=== PATIENT | female | born 1975 | race Caucasian/White ===

== ENCOUNTER 2024-03-28 08:04 | Emergency (ER) | payer BC, SELFPAY ==
[2024-03-28 08:12] VITALS: BP 132/81; PULSE 99; RESP 18; TEMP 36.5; O2SAT 99
--- NOTE | 2024-03-28 08:19 | ED.URI ---
HPI - URI/Sore Throat General Chief Complaint: Upper Respiratory Infection Stated Complaint: Cough Time Seen by Provider: 03/28/24 08:21 Source: patient Mode of arrival: ambulatory Limitations: no limitations History of Present Illness HPI Narrative: 48-year-old female presented for complaint of a cough and nasal congestion/sinus pressure for over 10 days. Denies associated shortness of breath, wheezing, nausea vomiting, fevers or lethargy. Taking multiple lday-ntp-zsalgty medicines including mucinex and benadryl. Related Data Home Medications ?Medication ?Instructions ?Recorded ?Confirmed ?Last Taken ?Type desvenlafaxine succinate 100 mg 100 mg PO Q24H 03/28/24 Unknown History tablet,extended release 24 hr norethindrone 1 mg-ethinyl 1 tablet PO DAILY 03/28/24 Unknown History estradiol 20 mcg (24)-iron 75 mg (4) tablet (Blisovi 24 Fe) Allergies Allergy/AdvReac Type Severity Reaction Status Date / Time No Known Allergies Allergy Verified 03/28/24 08:24 Review of Systems Review of Systems: CONSTITUTIONAL: Denies body aches, fever, chills, or sweats. EYES: Denies visual changes, redness, or discharge. ENT: reports rhinorrhea, congestion, denies sore throat, or otalgia. CARDIOVASCULAR: Denies chest pain, palpitations, or edema. RESPIRATORY: Reports cough, denies sob, wheezing. MUSCULOSKELETAL: Denies back pain, joint pain, or myalgia. NEUROLOGIC: Denies headache, numbness, tingling, or weakness. All systems reviewed & are unremarkable except as noted in HPI and below PMFSH Comments At time of signature, I have reviewed and agree with nursing past medical, surgical, social and family history unless otherwise noted. Please see nursing chart for further information. There is no relevant family history pertinent to the presenting complaint Exam Narrative: GENERAL: Well-appearing, in no acute distress. EYES: EOMI. No redness or drainage. Conjunctivae normal. ENT: Mucous membranes pink and moist. rhinorrhea noted. TMs normal bilaterally. Throat normal. Uvula midline. NECK: Normal AROM. Supple. CHEST: No respiratory distress. lungs clear to all coley. HEART: Regular rate and rhythm. No murmur appreciated. SKIN: Warm, dry, no rash. Capillary refill normal. Normal skin turgor. NEURO: Alert and oriented x3. Gait steady. PSYCH: Normal affect. Course Course Emergency Course: Patient is aware of diagnosis, understands and agrees to treatment plan. Anticipatory guidance given. Patient agrees to follow-up as directed and is aware of reasons to seek care at the emergency department. Portions of this record may have been created with voice recognition software Level of Care: Express Care Visit Vital Signs Vital signs: Vital Signs Temperature 97.7 F 03/28/24 08:12 Pulse Rate 99 03/28/24 08:12 Respiratory Rate 18 03/28/24 08:12 Blood Pressure 132/81 03/28/24 08:12 Pulse Oximetry 99 03/28/24 08:12 Oxygen Delivery Room Air 03/28/24 08:12 Temperature 97.7 F 03/28/24 08:12 Pulse Rate 99 03/28/24 08:12 Respiratory Rate 18 03/28/24 08:12 Blood Pressure 132/81 03/28/24 08:12 Pulse Oximetry 99 03/28/24 08:12 Oxygen Delivery Room Air 03/28/24 08:12 MDM - URI/Sore Throat MDM Narrative Medical decision making narrative: Discussed physical exam findingsConsistent with bronchitis/sinusitis. Advised supportive measures and signs/symptoms to go to the ER. Pt is appropriate for outpt treatment and f/u. Differential Diagnosis Differential diagnosis: Likely upper respiratory infection, otitis media, sinusitis, viral infection, bronchitis, influenza and pharyngitis Discharge Plan Discharge Clinical Impression: Sinusitis, Bronchitis Patient Disposition: Home, Self-Care Condition: Stable Instructions: Antibiotic Form, Acute Bronchitis (ED), Rhinosinusitis (ED) Additional Instructions: Take medication as directed Recommendations: Flonase spray and Zyrtec (or Claritin/Sarah) Prescription Cough syrup may cause drowsiness; avoid driving or take it at night time. Tylenol 1000mg every 8 hours as needed for pain Symptomatic treatment includes: rest, fluids, and increase humidity of the air at home. Follow up with your primary care provider as needed in 1 week Go to the ER for worsening symptoms or concerns Patient Language: [place] Prescriptions: New benzonatate 200 mg capsule 200 mg PO TID PRN (Reason: cough) Qty: 20 0RF codeine-guaifenesin [Guaifenesin AC] 10-100 mg/5 mL liquid 10 ml PO Q8H PRN (Reason: cough) Qty: 120 0RF methylprednisolone [Medrol (Jayden)] 4 mg tablets,dose pack See Rx Instructions .ROUTE .COMPLEX Qty: 21 0RF Rx Instructions: orally per package directions amoxicillin-pot clavulanate 875-125 mg tablet 1 tablet PO Q12H 7 Days Qty: 14 0RF No Action Blisovi 24 Fe 1 mg-20 mcg (24)/75 mg (4) tablet 1 tablet PO DAILY desvenlafaxine succinate 100 mg tablet extended release 24 hr 100 mg PO Q24H Follow-up/Referrals: Stanislav,MD Jeanie [Primary Care Provider] -
--- OUTSIDE RECORDS SUMMARY | 2024-04-02 08:34 | XMS_ITS | Data Portability ---
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 for bad periods good spirits as always, son improving. 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 HAs BTL, no period with OCPs son 22, daughter 15. 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 no issues will continue OCPs girls 50 bday trip coming up Not available 11/28/2023 15:14:40 Plan of Treatment Reminders Order Date Submit Date Provider Last Modified By Organization Details Last Modified Time Details Appointments ANNUAL 30 2024 10:00A M Marylou Perry MD Not available Not available Not available Lab unlisted lab - igp, rfx aptima HPV ascu 2018 019 [facility], [address], [address], [place], [address], 04/30/2018 11:15:06 unlisted lab - igp, rfx aptima HPV ascu 2019 020 [facility], [address], [address], [place], [address], 05/03/2019 11:07:36 cytology report, thin prep, smear or scraping, cervical or vaginal 2022 023 [facility], [address], [address], [place], [address], 07/26/2022 11:15:48 cytology report, thin prep, smear or scraping, cervical or vaginal 2023 024 [facility], [address], [address], [place], [address], 12/04/2023 16:12:59 Referral None recorded. Procedures None recorded. Surgeries None recorded. Imaging MAMMO, screening , digital, bilateral 2018 019 [email or web address] Not available 04/28/2018 14:37:57 MAMMO, screening , digital, bilateral 2019 020 [email or web address] Not available 04/30/2019 11:13:09 MAMMO, screening , digital, bilateral 2020 021 LAVALETTE [facility] Scheduling, [address] [facility] [place], [address], 04/24/2021 12:28:53 MAMMO, screening , digital, bilateral 2023 024 ARLEEN Shoemaker [facility] Scheduling, [address] [facility] , [place], [address], 02/27/2024 14:16:35 Medication Orders Junel Fe 24 1 mg-20 mcg (24)/75 mg (4) tablet 2018 019 [id number], [address], [place], [place], [id number], 04/28/2018 14:37:59 Junel Fe 24 1 mg-20 mcg (24)/75 mg (4) tablet 2019 020 [facility] #[id number], [address], [place], [place], [id number], 04/30/2019 11:12:53 Junel Fe 24 1 mg-20 mcg (24)/75 mg (4) tablet [address] [facility] #[id number], [address], [place], [place], [id number], 07/19/2022 16:05:57 Blisovi 24 Fe 1 mg-20 mcg (24)/75 mg (4) tablet 2023 024 [facility] #[id number], [address] [place], [address], 11/28/2023 15:02:54 Patient TargetsNo targets recorded. Patient Instructions Encounter Date Encounter Id Patient Instructions Last Modified By Organization Details Last Modified Time 04/28/2018 [id number] learning about breast cancer screening Not available 04/28/2018 14:37:08 04/30/2019 [id number] learning about breast cancer screening Not available 04/30/2019 11:12:46 03/07/2021 [id number] learning about breast cancer screening Not available 03/07/2021 10:31:01 07/19/2022 [id number] A healthy lifestyle: care instructions Not available 07/19/2022 16:05:52 11/28/2023 [id number] A healthy lifestyle: care instructions Not available 11/28/2023 15:02:51 learning about breast cancer screening Not available 11/28/2023 15:02:51 Reason for Referral None Reported. Results Created Date Observation Date Name Description Value Unit Range Abnormal Flag Note LastModifiedBy Organization Detail LastModifiedTime 04/28/19 19 04/30/2018 pap, IG + refle x HR HPV diagnosis: Jose R balbuena NEGAT AB FOR INTRA EPITH ELIAL EVENS N OR KEE LAU . Not Available [facility] ([facility]) [address] [place], [address], 04/30/2018 11:15:06 04/28/19 19 04/30/2018 pap, IG + refle x HR HPV specimen adequacy: Jose R balbuena Satis facto ry for evalu ation . No endoc ervic al compo nent is ident ified . Not Available [facility] ([facility]) [address] [place], [address], 04/30/2018 11:15:06 04/28/19 19 04/30/2018 pap, IG + refle x HR HPV clinician provided ICD10: Jose R balbuena Z01.4 19 Not Available [facility] ([facility]) [address] [place], [address], 04/30/2018 11:15:06 04/28/19 19 04/30/2018 pap, IG + refle x HR HPV performed by: Jose R Acosta ws, Cytot yudelka balbuena (ASCP ) Not Available [facility] ([facility]) [address] [place], [address], 04/30/2018 11:15:06 04/28/19 19 04/30/2018 pap, IG + refle x HR HPV . . Not Available [facility] ([facility]) [address] [place], [address], 04/30/2018 11:15:06 04/28/19 19 04/30/2018 pap, IG + refle x HR HPV note: Commen t The Pap smear is a scree malik test desig chandra to aid in the detec tion of carley ligna nt and malig nant condi tions of the uteri ne cervi x. It is not a diagn ostic proce dure and shoul d not be used as the sole means of detec ting cervi zelalem cance r. Both false -posi tive and false -nega tive repor ts do occur . Not Available [facility] ([facility]) [address] [place], [address], 04/30/2018 11:15:06 04/28/19 19 04/30/2018 pap, IG + refle x HR HPV test methodology: Commen t This liqui d based ThinP rep(R ) pap test was scree chandra with the use of an image guide d systrachele m. Not Available [facility] ([facility]) [address] [place], [address], 04/30/2018 11:15:06 04/28/19 19 04/30/2018 pap, IG + refle x HR HPV . Commen t The HPV DNA refle x crite anish were not met with this speci men resul t there fore, no HPV testi ng was perfo rmed. Not Available [facility] ([facility]) [address] [facility], [place], [address], 04/30/2018 11:15:06 04/30/19 20 05/03/2019 pap, IG + refle x HR HPV diagnosis: Commen t NEGAT AB FOR INTRA EPITH ELIAL LESIO N OR MALIG JUDI . Not Available [facility] ([facility]) [address] [place], [address], 05/03/2019 11:07:36 04/30/19 20 05/03/2019 pap, IG + refle x HR HPV specimen adequacy: Commen t Satis facto ry for evalu ation . No endoc ervic al compo nent is ident ified . Not Available [facility] ([facility]) [address] [facility], [place], [address], 05/03/2019 11:07:36 04/30/19 20 05/03/2019 pap, IG + refle x HR HPV clinician provided ICD10: Jose R balbuena Z01.4 19 Not Available [facility] ([facility]) [address] [facility], [place], [address], 05/03/2019 11:07:36 04/30/19 20 05/03/2019 pap, IG + refle x HR HPV performed by: Seven Buckley Not Available [facility] ([facility]) [address] [facility], [place], [address], 05/03/2019 11:07:36 04/30/19 20 05/03/2019 pap, IG + refle x HR HPV . . Not Available [facility] ([facility]) [address] [facility], [place], [address], 05/03/2019 11:07:36 04/30/19 20 05/03/2019 pap, IG + refle x HR HPV note: Jose R balbuena The Pap smear is a scree malik test desig chandra to aid in the detec tion of carley ligna nt and malig nant condi tions of the uteri ne cervi x. It is not a diagn ostic proce dure and shoul d not be used as the sole means of detec ting cervi zelalem cance r. Both false -posi tive and false -nega tive repor ts do occur . Not Available [facility] ([facility]) [address] [facility], [place], [address], 05/03/2019 11:07:36 04/30/19 20 05/03/2019 pap, IG + refle x HR HPV test methodology: Jose R balbuena This liqui d based ThinP rep(R ) pap test was scree chandra with the use of an image guide d syste m. Not Available [facility] ([facility]) [address] [facility], [place], [address], 05/03/2019 11:07:36 04/30/19 20 05/03/2019 pap, IG + refle x HR HPV . Commen t The HPV DNA refle x crite anish were not met with this speci men resul t there fore, no HPV testi ng was perfo rmed. Not Available [facility] ([facility]) [address] [facility], [place], [address], 05/03/2019 11:07:36 03/07/20 21 03/14/2021 IGP, RFX APTIM A HPV ASCU diagnosis: Commthomas t NEGAT AB FOR INTRA EPITH ELIAL LESIO N OR KEE LAU . [facility] [employer] IATED WITH INFLA MMATI ON ARE PRESE NT. THIS SPECI MEN WAS RESCR EENED PART OF OUR QUALI TY CONTR OL PROGR AM. Not Available [facility] ([facility]) [address] [facility], [place], [address], 03/14/2021 11:09:48 03/07/20 21 03/14/2021 IGP, RFX APTIM A HPV ASCU specimen adequacy: Jose R t Satis facto ry for evalu ation . Endoc ervic al and/o r squam ous metap lasti c cells (endo cervi zelalem compo nent) are prese nt. Not Available [facility] ([facility]) [address] [facility], [place], [address], 03/14/2021 11:09:48 03/07/20 21 03/14/2021 IGP, RFX APTIM A HPV ASCU clinician provided ICD10: Jose R t Z12.4 Not Available [facility] ([facility]) [address] [facility], [place], [address], 03/14/2021 11:09:48 03/07/20 21 03/14/2021 IGP, RFX APTIM A HPV ASCU performed by: Jose R collado LuKac s, Cytot echno logis t (ASCP ) Not Available [facility] ([facility]) [address] [facility], [place], [address], 03/14/2021 11:09:48 03/07/20 21 03/14/2021 IGP, RFX APTIM A HPV ASCU QC reviewed by: Jose R Brars , Cytot echno logis t Not Available [facility] ([facility]) [address] [place], [address], 03/14/2021 11:09:48 03/07/20 21 03/14/2021 IGP, RFX APTIM A HPV ASCU . . Not Available [facility] ([facility]) [address] [facility], [place], [address], 03/14/2021 11:09:48 03/07/20 21 03/14/2021 IGP, RFX APTIM A HPV ASCU note: Jose R balbuena The Pap smear is a scree malik test desig chandra to aid in the detec tion of carley ligna nt and malig nant condi tions of the uteri ne cervi x. It is not a diagn ostic proce dure and shoul d not be used as the sole means of detec ting cervi zelalem cance r. Both false -posi tive and false -nega tive repor ts do occur . Not Available [facility] ([facility]) [address] [facility], [place], [address], 03/14/2021 11:09:48 03/07/20 21 03/14/2021 IGP, RFX APTIM A HPV ASCU test methodology: Jose R balbuena This liqui d based ThinP rep(R ) pap test was scree chandra with the use of an image guide deonte mcpherson. Not Available [facility] ([facility]) [address] [facility], [place], [address], 03/14/2021 11:09:48 03/07/20 21 03/14/2021 IGP, RFX APTIM A HPV ASCU . Commen t The HPV DNA refle x crite anish were not met with this speci men resul t there fore, no HPV testi ng was perfo rmed. Not Available [facility] ([facility]) [address] [facility], [place], [address], 03/14/2021 11:09:48 07/20/19 23 07/26/2022 IGP, RFX APTIM A HPV ASCU diagnosis: Commthomas t NEGAT AB FOR INTRA EPITH ELIAL EVENS N OR KEE LAU . Not Available [facility] ([facility]) [address] [place], [address], 07/26/2022 11:15:48 07/20/19 23 07/26/2022 IGP, RFX APTIM A HPV ASCU specimen adequacy: Jose R t Satis facto ry for evalu ation . No endoc ervic al compo nent is ident ified . Not Available [facility] ([facility]) [address] [place], [address], 07/26/2022 11:15:48 07/20/19 23 07/26/2022 IGP, RFX APTIM A HPV ASCU clinician provided ICD10: Jose R balbuena Z01.4 19 Not Available [facility] ([facility]) [address] [place], [address], 07/26/2022 11:15:48 07/20/19 23 07/26/2022 IGP, RFX APTIM A HPV ASCU performed by: Jose R t Valeriano mckeon, Cytot yudelka robles t (ASCP ) Not Available [facility] ([facility]) [address] [place], [address], 07/26/2022 11:15:48 07/20/19 23 07/26/2022 IGP, RFX APTIM A HPV ASCU . . Not Available [facility] ([facility]) [address] [place], [address], 07/26/2022 11:15:48 07/20/19 23 07/26/2022 IGP, RFX APTIM A HPV ASCU note: Commen t The Pap smear is a scree malik test desig chandra to aid in the detec tion of carley ligna nt and malig nant condi tions of the uteri ne cervi x. It is not a diagn ostic proce dure and shoul d not be used as the sole means of detec ting cervi zelalem cance r. Both false -posi tive and false -nega tive repor ts do occur . Not Available [facility] ([facility]) [address] [place], [address], 07/26/2022 11:15:48 07/20/19 23 07/26/2022 IGP, RFX APTIM A HPV ASCU test methodology: Commen t This liqui d based ThinP rep(R ) pap test was scree chandra with the use of an image guide d syste m. Not Available [facility] ([facility]) [address] [place], [address], 07/26/2022 11:15:48 07/20/19 23 07/26/2022 IGP, RFX APTIM A HPV ASCU . Commen t The HPV DNA refle x crite anish were not met with this speci men resul t there fore, no HPV testi ng was perfo rmed. Not Available [facility] ([facility]) [address] [place], [address], 07/26/2022 11:15:48 11/28/19 24 12/04/2023 IGP, RFX APTIM A HPV ASCU diagnosis: COMMEN T NEGAT AB FOR INTRA EPITH ELIAL LESIO N OR MALIG JUDI . THIS SPECI MEN WAS RESCR EENED PART OF OUR QUALI TY CONTR OL PROGR AM. Not Available [facility] ([facility]) [address] [facility], [place], [address], 12/04/2023 16:12:58 11/28/19 24 12/04/2023 IGP, RFX APTIM A HPV ASCU specimen adequacy: JOSE R Balbuena Satis facto ry for evalu ation . No endoc ervic al compo nent is ident ified . Not Available [facility] ([facility]) [address] [facility], [place], [address], 12/04/2023 16:12:58 11/28/19 24 12/04/2023 IGP, RFX APTIM A HPV ASCU clinician provided ICD10: JOSE R Balbuena Z01.4 19 Not Available [facility] ([facility]) [address] [facility], [place], [address], 12/04/2023 16:12:58 11/28/19 24 12/04/2023 IGP, RFX APTIM A HPV ASCU performed by: JOSE R torres, Cytot echno logis t (ASCP ) Not Available [facility] ([facility]) [address] [place], [address], 12/04/2023 16:12:58 11/28/19 24 12/04/2023 IGP, RFX APTIM A HPV ASCU QC reviewed by: JOSE R Ruiz , Cytot echno logis t Not Available [facility] ([facility]) [address] [place], [address], 12/04/2023 16:12:58 11/28/19 24 12/04/2023 IGP, RFX APTIM A HPV ASCU . . Not Available [facility] ([facility]) [address] [place], [address], 12/04/2023 16:12:58 11/28/19 24 12/04/2023 IGP, RFX APTIM A HPV ASCU note: COMMEN T The Pap smear is a scree malik test desig chandra to aid in the detec tion of carley ligna nt and malig nant condi tions of the uteri ne cervi x. It is not a diagn ostic proce dure and shoul d not be used as the sole means of detec ting cervi zelalem cance r. Both false -posi tive and false -nega tive repor ts do occur . Not Available [facility] ([facility]) [address] [facility], [place], [address], 12/04/2023 16:12:58 11/28/19 24 12/04/2023 IGP, RFX APTIM A HPV ASCU test methodology: COMMEN T This liqui d based ThinP rep(R ) pap test was scree chandra with the use of an image guide deonte mcpherson. Not Available [facility] ([facility]) [address] [place], [address], 12/04/2023 16:12:58 11/28/19 24 12/04/2023 IGP, RFX APTIM A HPV ASCU . COMMEN T The HPV DNA refle x crite anish were not met with this speci men resul t there fore, no HPV testi ng was perfo rmed. Not Available [facility] ([facility]) [address] [place], [address], 12/04/2023 16:12:58 04/24/19 22 04/22/2021 MAMMO , lennie gan, digit al, bilat eral No observ ation record ed. [address] [place], [address], 04/24/2021 12:29:22 07/09/19 23 07/07/2022 MAMMO lennie, digit al, bilat eral No observ ation record ed. [email or web address] [address] [place], [address], 07/09/2022 09:45:11 12/19/20 24 12/14/2023 MAMMO , scree malik, digit al, bilat eral No observ ation record ed. jeremias [place] [address] [place], [address], 02/27/2024 14:53:32 Result Notes None recorded. Problems Name Problem SNOMED Code Status Onset Date Resolution Date Notes Provider Name and Address Organization Details Recorded Time Menometrorrhag ia [id number] Active SHELLIE Linder, [facility] 6 14:08:02 Problem Notes None recorded. Procedures Surgical History Date Name Laterality Status Provider Name and Address Organization Details Recorded Time 4 Most Recent Mammogram completed Cyn Villasenor RN [facility] 02/27/2024 14:53:43 4 Date of Last Pap Smear completed Cyn Villasenor RN [facility] 12/04/2023 16:29:06 6 Tubal Ligation completed Cyn Villasenor RN [facility] 03/19/2014 12:37:16 Imaging Results Imaging Date Name Status LastModified by Organiz ation Details LastModified Time 04/22/2021 MAMMO, screening, digital, bilateral completed [facility] [address] [facility] [place], [address], 04/24/2021 12:29:22 07/07/2022 MAMMO, screening, digital, bilateral completed cgracema [facility] [address] [place], [address], 07/09/2022 09:45:11 12/14/2023 MAMMO, screening, digital, bilateral completed cdarramol [facility] [address] [facility] [place], [address], 02/27/2024 14:53:32 Procedure Notes None recorded. Medical Equipment None Reported. Allergies No known drug allergies Medications Name Sig Start Date Stop Date Status Note LastModified by Organization Details LastModified Time cyclobenzap rine 10 mg tablet 07/19 completed Not Available Not Available Not Available amoxicillin 500 mg capsule 03/07 completed Not Available Not Available Not Available azithromyci n 250 mg tablet 03/07 completed Not Available Not Available Not Available fluconazole 150 mg tablet 03/07 completed Not Available Not Available Not Available benzonatate 200 mg capsule 07/19 completed Not Available Not Available Not Available hydrocodone 5 mg-acetamin ophen 325 mg tablet 07/19 completed Not Available Not Available Not Available topiramate 25 mg tablet TAKE 1 TABLET (25 MG TOTAL) BY MOUTH DAILY. active Not Available Not Available No t Available ciprofloxac in 500 mg tablet 03/07 completed Not Available Not Available Not Available sulfamethox azole 800 mg-trimetho prim 160 mg tablet 03/07 completed Not Available Not Available Not Available tramadol 50 mg tablet 03/07 completed Not Available Not Available Not Available alprazolam 0.25 mg tablet TAKE 1 TABLET (0.25 MG TOTAL) BY MOUTH 3 (THREE) TIMES A DAY NEEDED FOR ANXIETY. active Not Available Not Available No t Available aspirin 325 mg tablet,gulshan yed release active Not Available Not Available Not Available tamsulosin 0.4 mg capsule 03/07 completed Not Available Not Available Not Available oseltamivir 75 mg capsule 07/19 completed Not Available Not Available Not Available buspirone 10 mg tablet 07/19 completed Not Available Not Available Not Available codeine 10 mg-guaifene sin 100 mg/5 mL oral liquid TAKE 5 ML BY MOUTH EVERY 6 HOURS NEEDED FOR COUGH. MAY CAUSE DROWSINES S 07/19 completed Not Available Not Available Not Available ibuprofen 600 mg tablet TAKE 1 TABLET BY MOUTH EVERY 6 HOURS NEEDED FOR CRAMPS 03/07 completed Not Available Not Available Not Available methylpredn isolone 4 mg tablets in a dose pack 03/07 completed Not Available Not Available Not Available rizatriptan 5 mg disintegrat ing tablet PLEASE SEE ATTACHED FOR DETAILED DIRECTION S active Not Available Not Available No t Available fluticasone propionate 50 mcg/actuati on nasal spray,suspe nsion 07/19 completed Not Available Not Available Not Available sertraline 50 mg tablet 07/19 completed Not Available Not Available Not Available amoxicillin 875 mg-potassiu m clavulanate 125 mg tablet 03/07 completed Not Available Not Available Not Available ProAir HFA 90 mcg/actuati on aerosol inhaler 07/19 completed Not Available Not Available Not Available desvenlafax ine succinate ER 50 mg tablet,exte nded release 24 hr TAKE 1 TABLET BY MOUTH EVERY DAY active Not Available Not Available No t Available desvenlafax ine succinate ER 100 mg tablet,exte nded release 24 hr 07/19 completed Not Available Not Available Not Available desvenlafax ine succinate ER 25 mg tablet,exte nded release 24 hr active Not Available Not Available Not Available Blisovi 24 Fe 1 mg-20 mcg (24)/75 mg (4) tablet TAKE 1 TABLET BY MOUTH EVERY DAY active Not Available Not Available No t Available Vitals Date Recorded Body height Provider Name an d Address Organization Details Last Updated DateTime 04/28/2018 152.4 cm Mitra Ruffin MA [facility] 04/28/2018 14:25:59 Date Recorded Body mass index (BMI) Body weight Provider Name and Address Organization Details Last Updated DateTime 04/28/2018 35.7 kg/m2 26584.69 g Mitra Ruffin MA [facility] 04/28/2018 14:32:05 Date Recorded Body height Provider Name an d Address Organization Details Last Updated DateTime 04/30/2019 152.4 cm Mitra Ruffin MA [facility] 04/30/2019 11:01:09 Date Recorded Body mass index (BMI) Body weight Provider Name and Address Organization Details Last Updated DateTime 04/30/2019 35.7 kg/m2 66080.69 concha Ruffin MA [facility] 04/30/2019 11:05:52 Date Recorded Body weight Provider Name an d Address Organization Details Last Updated DateTime 03/07/2021 51746.14 concha Todd [facility] 02/09 10:24:36 Date Recorded Body height Provider Name an d Address Organization Details Last Updated DateTime 07/19/2022 152.4 cm Maricel Todd Tori [facility] 07/09 15:58:06 Date Recorded Body mass index (BMI) Body weight Provider Name and Address Organization Details Last Updated DateTime 07/19/2022 36.1 kg/m2 77078.59 g Maricel Peyton, Tori [facility] 07/19/2022 16:02:58 Date Recorded Body height Provider Name an d Address Organization Details Last Updated DateTime 11/28/2023 152.4 cm Maricel Todd [facility] 11/09 14:50:50 Date Recorded Body mass index (BMI) Body weight Provider Name and Address Organization Details Last Updated DateTime 11/28/2023 34.4 kg/m2 90283.69 g Maricel Todd Tori [facility] 11/28/2023 14:58:25 Date Recorded Systolic blood pressure Diastolic blood pressure Provider Name and Address Organization Details Last Updated DateTime 04/28/2018 108 mm[Hg] 83 mm[Hg] Mitra Ruffin MA [facility] 04/28/2018 14:32:14 Date Recorded Systolic blood pressure Diastolic blood pressure Provider Name and Address Organization Details Last Updated DateTime 04/30/2019 112 mm[Hg] 82 mm[Hg] Mitra Ruffin MA [facility] 04/30/2019 11:06:03 Date Recorded Systolic blood pressure Diastolic blood pressure Provider Name and Address Organization Details Last Updated DateTime 03/07/2021 140 mm[Hg] 86 mm[Hg] Maricel Todd Tori [facility] 03/07/2021 10:24:42 Date Recorded Systolic blood pressure Diastolic blood pressure Provider Name and Address Organization Details Last Updated DateTime 07/19/2022 111 mm[Hg] 75 mm[Hg] Maricel Todd [facility] 07/19/2022 16:03:05 Date Recorded Systolic blood pressure Diastolic blood pressure Provider Name and Address Organization Details Last Updated DateTime 11/28/2023 116 mm[Hg] 80 mm[Hg] Maricel Todd Tori [facility] 11/28/2023 14:58:30 Social History Question Answer Notes LastModified by Organizat ion Details LastModified Time Tobacco Smoking Status Never Smoker [facility] 03/07/2021 10:19:25 In The 14 Days Before Symptom Onset, Have You Had Close Contact With A Laboratory-confirm ed COVID-19 While That Case Was Ill? No Information n ot available 03/07/2021 In The 14 Days Before Symptom Onset, Have You Had Close Contact With A Person Who Is Under Investigation For COVID-19 While That Person Was Ill? No Information not available 03/07/2021 Have You Been To An Area Known To Be High Risk For COVID-19? No Information not available 03/07/2021 What Was The Date Of Your Most Recent Tobacco Screening? 11/28/2023 Information not available 11/28/2023 How Many Children Do You Have? 1 Information not available 03/22/2014 What Is Your Relationship Status? Single Information not available 03/22/2014 Has Tobacco Cessation Counseling Been Provided? No Information not available 03/07/2021 Do You Or Have You Ever Used Any Other Forms Of Tobacco Or Nicotine? No Information not available 03/07/2021 Sex: Female Functional Status None recorded. Mental Status None recorded. Family History Nothing Reported. Medical History No medical history recorded. Gynecological History Statement/Question Response Abnormal Pap N Flow Heavy STIs/STDs N HPV Vaccine N Current Control Method Tubal Ligat ion Most Recent Mammogram 12/14/2023 Menses Monthly Y Date of Last Pap Smear 11/28/2023 Sexual Problems? N LMP Definite Desired Control Method BCPs Obstetrics History GPAL:G 2 P 2 0 0 2 Type Value Full Term 2 Living 2 Total 2 Immunizations Vaccine Type Date Status Note Provider Nam e and Address Organization Details Recorded Time Influenza, high-dose, quadrivalent, PF 2 completed FEDERICO Adhikari [place], [place] - [facility] 11/28/2023 14:47:39 COVID-19, mRNA, LNP-S, PF, 30 mcg/0.3 mL dose 1 completed FED[place] Adh[place] [facility] 11/28/2023 14:47:39 COVID-19, mRNA, LNP-S, PF, 30 mcg/0.3 mL dose 1 completed XENIA AdhikariA [place] [facility] 11/28/2023 14:47:39 COVID-19, mRNA, LNP-S, PF, 30 mcg/0.3 mL dose, adrienne-sucrose 2 completed Maricel Kesslerce, R[place], [place] [facility] 11/28/2023 14:47:39 Influenza, split virus, quadrivalent, PF 9 completed Maricel Peyton, [place] [facility] 11/28/2023 14:47:51 influenza, unspecified formulation 0 completed Maricel Peyton, [place] [facility] 11/28/2023 14:47:50 Influenza, split virus, quadrivalent, PF 8 completed Maricel Todd, [place] [facility] 11/28/2023 14:47:51 Past Encounters Encounter ID Performer Location Encounter Start Date Encounter Closed Date Diagnosis/Indication Diagnosis SNOMED-CT Code Diagnosis ICD10 Code Diagnosis Note [id number] [place] [address] [address] [facility] [place] [address] 03/22/2014 16:21:57 03/23/2014 11:53:11 Gynecologic examination [id number] MD [place] [address] 2 [facility] [place] [address] 03/24/2015 13:50:10 03/24/2015 14:44:37 Gynecologic examination 15359490 Z01.419 Screening for malignant neoplasm of breast 339560901 Z12.39 [id number] MD [place] [address] 2 [facility] [place] [address] 03/29/2016 16:12:41 03/30/2016 09:24:25 Gynecologic examination 72960403 Z01.878 [id number] MD Navid Orellana ([place] [address]) 2 [facility] [place] [address] 04/23/2017 13:44:00 04/25/2017 14:48:38 Gynecologic examination 28662797 Z01.419 Body mass index 30+ - obesity 651024112 Z68.35 Screening for malignant neoplasm of breast 519825456 Z12.39 [id number] MD Navid Orellana 14 OB [address] [facility] [place] [address] 04/28/2018 14:16:00 04/29/2018 08:48:03 Gynecologic examination 59446674 Z01.419 Screening for malignant neoplasm of breast 458936756 Z12.39 Contracept ion care management 218070946 Z30.9 [id number] MD Navid Orellana 14 OB 4 [facility] [place] [address] 04/30/2019 10:17:41 05/01/2019 11:01:23 Gynecologic examination 96890892 Z01.419 Screening for malignant neoplasm of breast 070865580 Z12.39 Irregular periods 720132 07 N92.6 [id number] MD Navid Orellana 14 OB 4 [facility] [place] [address] 03/07/2021 10:10:20 03/08/2021 05:53:09 Gynecologic examination 77627264 Z01.419 Screening for malignant neoplasm of breast 531478726 Z12.39 [id number] MD Navid Orellana 14 OB 4 [facility] [place] [address] 07/19/2022 15:33:59 07/20/2022 12:59:07 Contraception care management 330523496 Z30.9 Obesity 029496220 E66.9 Gynecologi c examination 73350248 Z01.944 [id number] MD Navid Orellana 14 OB 4 [facility] [place] [address] 11/28/2023 14:37:20 12/03/2023 10:11:48 Contraception care management 024773101 Z30.9 Obesity 879937192 E66.8 Gynecologi c examination 04102579 Z01.419 Screening for malignant neoplasm of breast 842559705 Z12.39 Health Concerns Section Related Observation LastModified by Organization Detai ls LastModified Time None Recorded Concern Status LastModified by Organization Details LastModified Time None Recorded Advance Directives Directive None Recorded Payers Encounter Date Sequence Insurance Name Policy Number Policy Harvey Covered Member ID Harvey Member ID Guarantor Name 04/28/2018 1 [facility]: [employer] [id number] 2 Otilia Lujan [id number] Otilia Lujan 04/30/2019 1 [facility]: [employer] ([employer]) [id number] 2 Otilia Lujan [id number] Otilia Lujan 03/07/2021 1 [facility]: [employer]) [id number] 2 Otilia Lujan [id number] Otilia Lujan 07/19/2022 1 [facility]: [employer] ([employer]) [id number] 2 Otilia Lujan [id number] Otilia Lujan 11/28/2023 1 [facility]: [employer] ([employer]) [id number] 2 Otilia Lujan [id number] Otilia Lujan Notes Date Note Type Note Provider Name and Address Organization Details Recorded Time 04/28/2018 text/html Annual GYNReport ed bypatient.Menstrua l cycle:Normal menses Urinary symptoms:No hematuria; No incontinence Vulva:No genital lesion Vagina:Normal vaginal discharge Breast:No breast pain; No breast lump; No nipple discharge Current Contraception:Oral contraceptives; Tubal ligation Sexual complaints:No sexual complaints; No pain during intercourse; Normal libido Menopausal Symptoms:No menopausal symptoms; Normal vaginal lubrication Psychological symptoms:No depression; No anxiety; No PMDD Marylou Perry MD Attn: [address] [place], [address], [facility] 04/28/2018 14:48:20 04/30/2019 text/html Annual GYNReport ed bypatient.Menstrua l cycle:Normal menses Urinary symptoms:No hematuria; No incontinence Vulva:No genital lesion Vagina:Normal vaginal discharge Breast:No breast pain; No breast lump; No nipple discharge Current Contraception:Oral contraceptives; Tubal ligation Sexual complaints:No sexual complaints; No pain during intercourse; Normal libido Menopausal Symptoms:No menopausal symptoms; Normal vaginal lubrication Psychological symptoms:No depression; No anxiety; No PMDD Marylou Perry MD Attn: [address] [place], [address], [facility] 04/30/2019 11:24:43 03/07/2021 text/html Annual GYNReport ed bypatient.Menstrua l cycle:Normal menses Urinary symptoms:No hematuria; No incontinence Vulva:No genital lesion Vagina:Normal vaginal discharge Breast:No breast pain; No breast lump; No nipple discharge Current Contraception:Oral contraceptives; Tubal ligation Sexual complaints:No sexual complaints; No pain during intercourse; Normal libido Menopausal Symptoms:No menopausal symptoms; Normal vaginal lubrication Psychological symptoms:No depression; No anxiety; No PMDD Marylou Perry MD Attn: [address] [place], [address], [facility] 03/07/2021 10:39:32 07/19/2022 text/html Annual GYNReport ed bypatient.Menstrua l cycle:Normal menses Urinary symptoms:No hematuria; No incontinence Vulva:No genital lesion Vagina:Normal vaginal discharge Breast:No breast pain; No breast lump; No nipple discharge Current Contraception:Oral contraceptives; Tubal ligation Sexual complaints:No sexual complaints; No pain during intercourse; Normal libido Menopausal Symptoms:No menopausal symptoms; Normal vaginal lubrication Psychological symptoms:No depression; No anxiety; No PMDD Marylou Perry MD Attn: [address] [place], [address], [facility] 07/19/2022 16:14:12 11/28/2023 text/html Annual GYNReport ed bypatient.Menstrua l cycle:no period on pills Urinary symptoms:No hematuria; No incontinence Vulva:No genital lesion Vagina:Normal vaginal discharge Breast:No breast pain; No breast lump; No nipple discharge Current Contraception:Oral contraceptives; Tubal ligation Sexual complaints:No sexual complaints; No pain during intercourse; Normal libido Menopausal Symptoms:No menopausal symptoms; Normal vaginal lubrication Psychological symptoms:No depression; No anxiety; No PMDD My very first new [facility] OB patient upon moving to [place] doing well on OCPs; no periods - doing well Marylou Perry MD Attn: [address] [place], [address], [facility] 11/28/2023 15:14:55 OBGyn Episode No OBEpisode recorded.
== END 2024-03-28 08:30 | disposition home or self-care (01) ==
PROVIDERS: Emergency Provider Nurse Practitioner Family; PCP Family Medicine
DX: J32.9 Chronic sinusitis, unspecified (principal); J40 Bronchitis, not specified as acute or chronic
CPT/HCPCS: 99203; G0463